=== PATIENT | female | born 2000 | race Caucasian/White ===

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

== ENCOUNTER 2025-10-22 09:09 | Emergency (ER) | payer MEDICAID, OTHER ==
[~2025-10-22] VITALS: Ht 162.6 cm; Wt 140.0 kg
[2025-10-22 09:10] VITALS: BP 136/90; PULSE 91; RESP 18; O2SAT 97
--- NOTE | 2025-10-22 09:50 | ED.PDOC ---
Musculoskeletal HPI Comments 25 y/o F, presents to the ED for CC of left ankle injury. Patient states, she was exiting a lifted vehicle last night (10/21/25) when she accidently injured her left ankle. Following trauma, patient reports swelling to the left ankle and being unable to bear weight onto her left extremity. Patient denies head injury, loss of consciousness, tingling, or numbness. No other symptoms or modifying factors are present at this time. Chief Complaint: Lower Extremity Time Seen by MD: 09:45 Reviewed Notes: Nurses Notes, Medications, Allergies Allergies: Coded Allergies: NO KNOWN ALLERGIES (Unverified , 06/04/21) Information Source: Patient Mode of Arrival: Wheelchair Location: Left Extremity Location: Ankle Timing: Hours Prehospital treatment: None Severity: Moderate Able to Move Extremity: Yes Bear Weight: No Pain: Moderate Circumstances: Fall Onset of Symptoms: After Trauma Symptoms: Swelling, Pain DVT Risk Factors: NONE Last Tetanus: Unknown Associated signs and symptoms: Ankle pain Past Medical History PAST MEDICAL HISTORY: Denies Surgical History: Denies all surgeries WORK ORDER DETAILER History: Denies all WORK ORDER DETAILER Hx Family History Family History: Reviewed,noncontributory to illness Social History Smoker: Non-Smoker Alcohol: Denies ETOH Use Drugs: Denies Drug Use Lives In: Home Constitutional: denies: chills, diaphoresis, fatigue, fever, malaise, sweats, weakness, others EENTM: denies: blurred vision, double vision, ear bleeding, ear discharge, ear drainage, ear pain, ear ringing, eye pain, eye redness, hearing loss, mouth pain, mouth swelling, nasal discharge, nose bleeding, nose congestion, nose pain, photophobia, tearing, throat pain, throat swelling, voice changes, others Respiratory: denies: cough, hemoptysis, orthopnea, SOB at rest, shortness of breath, SOB with excertion, stridor, wheezing, others Cardiovascular: denies: chest pain, dizzy spells, diaphoresis, Dyspnea on exertion, edema, irregular heart beat, left arm pain, lightheadedness, palpitations, PND, syncope, others Gastrointestinal: denies: abdomen distended, abdominal pain, blood streaked bowels, constipated, diarrhea, dysphagia, difficulty swallowing, hematemesis, melena, nausea, poor appetite, poor fluid intake, rectal bleeding, rectal pain, vomiting, others Genitourinary: denies: abnormal vagina bleeding, burning, dyspareunia, dysuria, flank pain, frequency, hematuria, incontinence, pain, , vagina discharge, urgency, others Neurological: denies: dizziness, fainting, headache, left sided numbness, left sided weakness, numbness, paresthesia, pre-existing deficit, right sided numbness, right sided weakness, seizure, speech problems, tingling, tremors, weakness, others Musculoskeletal: reports: others (Ankle pain, left ankle swelling); denies: back pain, gout, joint pain, joint swelling, muscle pain, muscle stiffness, neck pain Integumetry: denies: bruises, change in color, change in hair/nails, dryness, laceration, lesions, lumps, rash, wounds, others Allergic/Immunocompromised: denies: Difficulty Healing, Frequent Infections, Hives, Itching, others Hematologic/Lymphatic: denies: anemia, blood clots, easy bleeding, easy bru ising, swollen glands, others Endocrine: denies: excessive hunger, excessive sweating, excessive thirst, e xcessive urination, flushing, intolerance to cold, intolerance to heat, unexplained weight gain, unexplained weight loss, others Psychiatric: denies: anxiety, bipolar disorder, depression, hopeless, panic disorder, schizophrenia, sleepless, suicidal, others All Other Systems: Reviewed and Negative Physical Exam General Appearance: No Apparent Distress, Normal HEENT: Normal ENT Inspection, Pharynx Normal Neck: Full Range of Motion, Non-Tender, Normal, Normal Inspection Respiratory: Chest Non-Tender, Lungs Clear, No Accessory Muscle Use, No Respiratory Distress, Normal Breath Sounds Cardiovascular: No Edema, No Murmur, No Gallop, Normal Peripheral Pulses, Regular Rate/Rhythm Breast Exam: Deferred Gastrointestinal: No Organomegaly, Non Tender, No Pulsatile Mass, Normal Bowel Sounds, Soft Genitalia: Deferred Pelvic: Deferred Rectal: Deferred Extremities: No calf tenderness, Normal capillary refill, Normal inspection, Normal range of motion, Non-tender, No pedal edema Musculoskeletal : Location: Left Extremity Location: Ankle Apperance: Swelling Neurologic: Alert, filler leaf cutter long II-XII nml as Tested, No Motor Deficits, Normal Affect, Normal Mood, No Sensory Deficits Cerebellar Function: Normal Reflexes: Normal Skin: Dry, Normal Color, Warm Lymphatic: No Adenopathy Was a procedure done? Was a procedure done?: No Differential Diagnosis EXT Differential Diagnosis: Fracture, Sprain, Dislocation X-Ray, Labs, Meds, VS Vital Signs Date Time Temp Pulse Resp B/P (MAP) Pulse Ox O2 Delivery O2 Flow Rate FiO2 10/22/25 10:00 98.4 10/22/25 09:10 97.8 91 18 136/90 97 97.8 Current Medications Medications (Trade) Dose Ordered Sig/Rand Route Start Time Stop Time Status Last Admin Acetaminophen (Tylenol Tablet) 650 mg ONCE ONCE PO 10/22/25 09:45 10/22/25 09:46 DC 10/22/25 10:00 Time of 1ST Reevaluation: 10:15 Reevaluation 1ST: Unchanged Patient Education/Counseling: Diagnosis, Treatment Family Education/Counseling: No Family Present Departure 1 Departure Time of Disposition: 10:27 (Patient likely with a sprained ankle) Impression: Primary Impression: Sprained ankle Disposition: 01 HOME / SELF CARE / HOMELESS Condition: Stable Referrals: ANDRE GARCIA MD Additional Instructions: You sprained your ankle. Fortunately it is not broken on X-ray today. A sprain can hurt as much as a brake but heals much faster. You can ice your ankle as needed for pain. You can naeem wrap your ankle as needed for pain. You can use crutches as needed. For pain you can take: 8am: Ibuprofen 400mg with food Noon: Tylenol 1000mg 4pm: Ibprofen 400mg with food 8pm: Tylenol 1000mg You were referred to our orthopedic surgeon to ensure you are healing well. Please call for an appointment within one week. If your symptoms worsen or you have any other concerns then please return to the ER. Discharged With: Self Critical Care Note Critical Care Time?: No Stability Stability form required: No Heart Score Heart Score: Heart Score Response (Comments) Value History N/A 0 EKG N/A 0 Age N/A 0 Risk Factors N/A 0 Troponin N/A 0 Total 0 I personally scribed for KENNEDI SEAMAN MD ([email or web address]) on 10/22/25 at 09:50. Electronically submitted by Neda Foster ([email or web address]). I personally scribed for KENNEDI SEAMAN MD ([email or web address]) on 10/22/25 at 09:57. Electronically submitted by Neda Foster ([email or web address]). KENNEDI SEAMAN MD Oct 22, 2025 09:50
[2025-10-22 10:00] VITALS: TEMP 98.4
[2025-10-22] MEDS: ACETAMINOPHEN 325 MG TAB PO ONE (10:00)
--- NOTE | 2025-10-22 10:26 | DVH ---
CLINICAL INFORMATION: Fall injury. Rolled ankle. TECHNIQUE: 2 views of the left ankle were obtained. COMPARISON: None FINDINGS: No acute fracture or dislocation. Talar dome is smooth. No widening at the ankle mortise. No significant arthropathy. Moderate soft tissue swelling around the ankle, slightly more prominent anteriorly and laterally. IMPRESSION: 1. No acute bony abnormality. 2. Moderate soft tissue swelling.
== END 2025-10-22 10:53 | disposition home or self-care (01) ==
LOC: ER 09:09
DX: S93.402A Sprain of unspecified ligament of left ankle, initial encounter (principal); X50.1XXA Overexertion from prolonged static or awkward postures, initial encounter; Y93.89 Activity, other specified; Y92.89 Other specified places as the place of occurrence of the external cause; Y99.8 Other external cause status
CPT/HCPCS: 73600